=== PATIENT | male | born 1940 | race Caucasian/White ===

== ENCOUNTER → 2016-12-14 | Outpatient (CLI) | payer MEDICARE, BC ==
[2016-12-14 19:33] VITALS: BP 154/80
== END ==
LOC: MHUC 18:57
PROVIDERS: ATTEND Physician Assistant
DX: S61.412A Laceration without foreign body of left hand, initial encounter (principal); S00.81XA Abrasion of other part of head, initial encounter; W10.8XXA Fall (on) (from) other stairs and steps, initial encounter; Y92.008 Other place in unspecified non-institutional (private) residence as the place of occurrence of the external cause
CPT/HCPCS: 12001; 99213